=== PATIENT | female | born 1980 | race Hispanic/Latino ===

== ENCOUNTER → 2016-05-15 | Outpatient (CLI) | payer OTHER | END | disposition home or self-care (01) | LOC: YCFC.O 09:42 | PROVIDERS: ATTEND Nurse Practitioner Family | DX: E61.1 Iron deficiency (principal); E11.9 Type 2 diabetes mellitus without complications ==

== ENCOUNTER → 2016-11-12 | Outpatient (CLI) | payer OTHER | END | disposition home or self-care (01) | LOC: YCFC.O 09:23 | PROVIDERS: ATTEND Nurse Practitioner Family | DX: M79.1 Myalgia (principal); E11.9 Type 2 diabetes mellitus without complications; D64.9 Anemia, unspecified; E78.2 Mixed hyperlipidemia ==

== ENCOUNTER → 2017-02-24 | Outpatient (CLI) | payer OTHER | END | disposition home or self-care (01) | LOC: LAB.O 11:49 | PROVIDERS: ATTEND Nurse Practitioner Family | DX: E78.2 Mixed hyperlipidemia (principal); E11.9 Type 2 diabetes mellitus without complications; D50.9 Iron deficiency anemia, unspecified ==

== ENCOUNTER → 2017-09-03 | Outpatient (CLI) | payer OTHER | LOC: YCFC.O 08:32 | PROVIDERS: ATTEND Nurse Practitioner Family | DX: E78.00 Pure hypercholesterolemia, unspecified (principal); D50.9 Iron deficiency anemia, unspecified; E11.9 Type 2 diabetes mellitus without complications ==

== ENCOUNTER → 2018-04-27 | Outpatient (CLI) | payer OTHER | LOC: YCFC.O 10:39 | PROVIDERS: ATTEND Nurse Practitioner Family | DX: E78.00 Pure hypercholesterolemia, unspecified (principal); E11.9 Type 2 diabetes mellitus without complications; D50.9 Iron deficiency anemia, unspecified; I10 Essential (primary) hypertension ==

== ENCOUNTER → 2018-10-15 | Outpatient (CLI) | payer OTHER | LOC: YCFC.O 10:47 | PROVIDERS: ATTEND Nurse Practitioner Family | DX: I10 Essential (primary) hypertension (principal); E78.00 Pure hypercholesterolemia, unspecified; E11.9 Type 2 diabetes mellitus without complications; D50.9 Iron deficiency anemia, unspecified ==

== ENCOUNTER → 2019-12-22 | Outpatient (CLI) | payer OTHER | LOC: YCFC.O 11:43 | PROVIDERS: ATTEND Family Medicine | DX: E11.9 Type 2 diabetes mellitus without complications (principal); E78.00 Pure hypercholesterolemia, unspecified; D50.9 Iron deficiency anemia, unspecified ==